=== PATIENT | female | born 1965 | race Hispanic/Latino ===

== ENCOUNTER 2017-10-08 10:29 | Emergency (ER) | payer OTHER ==
[2017-10-08 10:46] VITALS: BP 123/85; PULSE 84; RESP 18; TEMP 99; O2SAT 98
--- NOTE | 2017-10-08 11:48 | C.PDOC ---
History Of Present Illness 52 y/o female presents to the ER complaining of neck and back pain which has been present for the past 1 week. Patient states the pain radiates to the front and the pain is on/off. Patient reports that she took Ibuprofen with some relief. Time Seen by Provider: 10/08/17 10:40 Chief Complaint (Nursing): Back Pain History Per: Patient History/Exam Limitations: no limitations Onset/Duration Of Symptoms: Days Current Symptoms Are (Timing): Still Present Severity: Moderate Past Medical History Reviewed: Historical Data, Nursing Documentation, Vital Signs Vital Signs: Last Vital Signs Temp 99 F 10/08/17 10:44 Pulse 84 10/08/17 10:44 Resp 18 10/08/17 10:44 BP 123/85 10/08/17 10:44 Pulse Ox 98 10/08/17 12:48 - Medical History PMH: No Chronic Diseases Other Surgeries: Hx of surgeries Family History: States: No Known Family Hx - Social History Hx Alcohol Use: No Hx Substance Use: No - Immunization History Hx Tetanus Toxoid Vaccination: No Hx Influenza Vaccination: No Hx Pneumococcal Vaccination: No Review Of Systems Except As Marked, All Systems Reviewed And Found Negative. Constitutional: Negative for: Fever, Chills Musculoskeletal: Positive for: Neck Pain, Back Pain Physical Exam - Physical Exam Appears: Non-toxic, No Acute Distress Skin: Normal Color, Warm, Dry Head: Atraumatic, Normacephalic Eye(s): bilateral: Normal Inspection Nose: Normal Oral Mucosa: Moist Neck: Normal ROM, Supple Chest: Symmetrical Cardiovascular: Rhythm Regular Respiratory: Normal Breath Sounds, No Rales, No Rhonchi, No Wheezing Back: Normal Inspection, No CVA Tenderness, No Paraspinal Tenderness Neurological/Psych: Oriented x3, Normal Speech ED Course And Treatment O2 Sat by Pulse Oximetry: 98 (RA) Pulse Ox Interpretation: Normal Medical Decision Making Medical Decision Making: Plan: --Motrin PO --Tylenol PO Disposition Counseled Patient/Family Regarding: Diagnosis, Need For Followup, Rx Given - Disposition Referrals: [facility] [Outside] Disposition: HOME/ ROUTINE Disposition Time: 11:45 Condition: STABLE Prescriptions: Ibuprofen [Motrin] 600 mg PO TID #15 tab Instructions: Muscle and Bone Pain (DC) Forms: Gen Discharge Inst [place]uan, [facility] ([place]uan) - POA Present On Arrival: None - Clinical Impression Clinical Impression: Musculoskeletal back pain - Scribe Statement The provider has reviewed the documentation as recorded by the Carenibe Wilfrid Painter Provider Attestation: All medical record entries made by the Scribe were at my direction and personally dictated by me. I have reviewed the chart and agree that the record accurately reflects my personal performance of the history, physical exam, medical decision making, and the department course for this patient. I have also personally directed, reviewed, and agree with the discharge instructions and disposition.
== END 2017-10-08 12:02 | disposition home or self-care (01) ==
LOC: C.ER 10:29
DX: M54.9 Dorsalgia, unspecified (principal)